=== PATIENT | female | born 1970 | race Caucasian/White ===

== ENCOUNTER 2020-08-26 19:19 | Inpatient (IN) ==
[2020-08-26 20:27] LABS: Urine Appearance Cloudy; Urine Bilirubin Negative (Negative); Urine Blood 1+ (Negative); Urine Color Straw; Urine Glucose Negative (Negative); Urine Ketones Negative (Negative); Urine Nitrite Negative (Negative); Urine Protein Negative (Negative); Urine Specific Gravity 1.002 (1.010-1.030); Urine Urobilinogen Negative (Negative)
[2020-08-26 20:29] LABS: Urine Bacteria Absent (Absent); Urine Red Blood Cell Trace(0-2/hpf) (Absent); Urine Squamous Epithelial Cell Present (Absent); Urine White Blood Cell 2+(11-20/hpf) (Absent)
[2020-08-26 20:34] LABS: ABS Basophils 0.1 10^3/ul (0-0.2); ABS Eosinophils 0.1 10^3/ul (0-0.6); ABS Lymphocytes 2.9 10^3/ul (1.0-4.8); ABS Monocytes 0.8 10^3/ul (0-0.8); ABS Neutrophils 2.4 10^3/ul (1.5-7.7); Eosinophil % 1.3 %; Hematocrit 39 % (35-47); Mean Corpuscular HGB Conc 34 g/dL (31-36); Mean Corpuscular Hemoglobin 30 pg (27-31); Mean Corpuscular Volume 89 fL (80-97); Mean Platelet Volume 8.3 fL (7.4-10.4); Nucleated Red Blood Cells % 0.1; Platelet Count 358 10^3/uL (150-450); Red Blood Count 4.34 10^6 /uL (3.70-4.87); Red Cell Distribution Width 14 % (10-15); White Blood Count 6.2 10^3/uL (3.5-10.8)
[2020-08-26 20:39] LABS: Urine Benzodiazepine Screen None Detected (None Detect); Urine Cannabinoids Screen None Detected (None Detect); Urine Opiates Screen None Detected (None Detect)
[2020-08-26 20:53] LABS: ALT 16 U/L (7-52); AST 22 U/L (13-39); Albumin 4.1 g/dL (3.2-5.2); Albumin/Globulin Ratio 1.5 (1-3); Alkaline Phosphatase 164 U/L (34-104); Anion Gap 4 mmol/L (2-11); BUN/Creatinine Ratio 16.9 (8-20); Blood Urea Nitrogen 12 mg/dL (6-24); CO2 Carbon Dioxide 29 mmol/L (22-32); Calcium 9.4 mg/dL (8.6-10.3); Chloride 106 mmol/L (101-111); EGFR African American 105.9 (>60); EGFR Non-African American 87.5 (>60); Globulin 2.7 g/dL (2-4); Glucose 92 mg/dL (70-100); Sodium 139 mmol/L (135-145); Total Protein 6.8 g/dL (6.4-8.9)
[2020-08-26 21:22] LABS: Acetaminophen < 15 mcg/mL; Alcohol, S 11 mg/dL (<10); Salicylate < 2.50 mg/dL (<30)
[2020-08-27] MEDS ORDERED: Al Hydrox/Mg Hydrox/Simet LIQ 30 ML UDC PO PRN (04:42)
[2020-08-27] MEDS: Venlafaxine XR 75 mg PO SCH ×2 (12:47→16:20)
[2020-08-27] MEDS: Vitamin THERAPEUTIC TAB PO SCH (12:47)
[2020-08-28 08:15] LABS: HDL Cholesterol 52.5 mg/dL
[2020-08-28] MEDS: Venlafaxine XR 75 mg PO SCH ×2 (10:41→13:46)
[2020-08-28] MEDS: Vitamin THERAPEUTIC TAB PO SCH (10:42)
[2020-08-29] MEDS: Venlafaxine XR 75 mg PO SCH ×2 (09:25→14:15)
[2020-08-29] MEDS: Vitamin THERAPEUTIC TAB PO SCH (09:26)
== END 2020-08-29 14:58 | disposition home or self-care (01) | DRG 885 ==
LOC: ED 19:19 → BSU 08-27 03:59
PROVIDERS: ADMIT Psychiatry & Neurology Psychiatry; ATTEND Psychiatry & Neurology Psychiatry